=== PATIENT | male | born 1940 | race Hispanic/Latino ===

== ENCOUNTER 2018-02-17 08:04 | Day surgery (SDC) | payer MEDICARE ==
[2018-02-17] MEDS ORDERED: NACL 0.9% 1000 ML 1,000 ML ONE (08:23)
[2018-02-17] MEDS ORDERED: WATER FOR IRRIG STERILE IR ONE (09:21)
[2018-02-17] MEDS ORDERED: WATER FOR IRRIG STERILE ONE (09:21)
[2018-02-17] MEDS ORDERED: DIPRIVAN 10 MG/ML IV ONE ×2 (09:26)
--- NOTE | 2018-02-17 09:26 | Anesthesia Consultation ---
Anesthesia Consult and Med Hx Date of service: 02/17/18 - Airway Anesthetic Teeth Evaluation: Good, Bridges ROM Head & Neck: Adequate Mental/Hyoid Distance: Adequate Mallampati Class: Class II Intubation Access Assessment: Probably Good - Pulmonary Exam CTA: Yes - Cardiac Exam Cardiac Exam: RRR - Pre-Operative Health Status ASA Pre-Surgery Classification: ASA2 Proposed Anesthetic Plan: MAC - Cardiovascular System Hx Hypertension: Yes
--- NOTE | 2018-02-17 09:26 | Anesthesia Day of Surgery ---
Anesthesia Day of Surgery - Day of Surgery Patient Examined: Yes Patient H&P Reviewed: Yes Patient is NPO: Yes
--- NOTE | 2018-02-17 10:06 | Discharge Summary ---
Short Stay Discharge Plan Activity: other (january d/c when stable. cl liqs then advance to solid as [place]. rto tu) Weight Bearing Status: Weight Bear as Tolerated Diet: other Follow up with: JULIET VERA MD [Staff Physician] - 02/21/18
[2018-02-17] MEDS ORDERED: APRESOLINE ONE (10:40)
--- NOTE | 2018-02-17 10:50 | Operative Report ---
PREOPERATIVE DIAGNOSIS: Attempted colonoscopy. POSTOPERATIVE DIAGNOSIS: Flex sigmoidoscopy and biopsy. SURGEON: Pepito Ferrara MD ANESTHESIA: IV sedation. COMPLICATIONS: No complications. CONDITION: The patient is a very pleasant 77-year-old gentleman, who has been recently complaining of hematochezia. Physical exam at the office revealed no obvious external or thrombosed hemorrhoids. Rectal exam was nontender. Because of the patient's age and history, colonoscopy was scheduled at this time. PROCEDURE IN DETAIL: The patient was placed in left lateral decubitus position and properly sedated. Inspection of the anus once again revealed no evidence of external thrombosed hemorrhoids. Rectal exam; however, this time under sedation revealed a palpable mass at the fingertip approximately 4-5 cm from the anal verge. Colonoscope was then gently introduced. A fungating almost circumferential lesion was noted in the area and there was active oozing in the lesion. Multiple hot biopsies were taken of the lesion. The scope was not able to be advanced past the lesion. IMPRESSION: At this time is fungating type of mucosal lesion at approximately 5-6 cm from the anal verge. Rule out malignancy. We will await biopsy results and will follow up with the patient on Tuesday. JOB# [id number] SAMANTHA/LEYDI
[2018-02-17 11:01] VITALS: BP 168/80
== END 2018-02-17 08:05 | disposition home or self-care (01) ==
LOC: GIO 08:04
PROVIDERS: ATTEND Surgery
DX: C20 Malignant neoplasm of rectum (principal); I10 Essential (primary) hypertension
CPT/HCPCS: 45380; 88305; J0360; J2704; J7030